=== PATIENT | female | born 1985 | race Caucasian/White ===

== ENCOUNTER 2017-01-09 14:43 | Emergency (ER) | payer BC ==
[~2017-01-09] VITALS: Ht 154.9 cm; Wt 55.2 kg
[~2017-01-09 14:43] MED LIST: CYCL-319 PO
[2017-01-09 14:45] VITALS: Ht 154.9 cm; Wt 55.2 kg
[2017-01-09] MEDS ORDERED: IBUPROFEN 800 MG TAB PO ONE (15:30)
--- NOTE | 2017-01-09 15:58 | RADRPT ---
PROCEDURE: US Pelvis. CLINICAL INDICATION: Pelvic pain. TECHNIQUE: The pelvis was evaluated with transabdominal and transvaginal sonography in the axial a nd sagittal planes. COMPARISON: No prior study is available for comparison. FINDINGS: Uterus: 8.5 x 4.5 x 5.3 cm. Endometrium: Thickened and heterogeneous measuring 12.1 mm. Right ovary: 1.9 x 0.9 x 1.3 cm. Left ovary: 2.0 x 1.3 x 1.9 cm. Uterine masses: None. Ovarian masses: None. Color Doppler and pulsed Doppler sonography demonstrate normal flow to the ova [place]. Other pelvic masses: None. Free fluid: None. IMPRESSION: 1. Thickened and heterogeneous endometrium measuring 12.1 mm. Follow-up ultrasound in 6 weeks is ad vised. 2. Otherwise normal pelvic ultrasound. RPTAT: QQ .Werner Payne MD, Date Time Electronically viewed and signed by .Werner Payne MD, on 01/09/2017 15:58 .R/
--- NOTE | 2017-01-09 16:07 | ERD ---
ER Documentation Chief Complaint Chief Complaint vag bleed x 3 weeks with pelvic pain HPI This a 31-year-old female who presents the emergency department today complaining of vaginal bleeding. Patient states that she had her period for 3 weeks and it stopped for fun week and then returned. States she has had this problem in the past. States she is taking oral contraceptive pills denies any fevers or chills, vomiting or diarrhea. ROS All systems reviewed and are negative except as per history of present illness. Medications Home Meds Active Scripts Acetaminophen* (Tylophen*) 500 Mg Capsule, 1 CAP PO Q6H Y for PAIN AND OR ELEVATED TEMP, #30 CAP Prov:SUNNY LYONS PA-C 01/09/17 Naproxen* (Naprosyn*) 500 Mg Tablet, 500 MG PO BID Y for PAIN AND/OR INFLAMMATION, #30 TAB Prov:SUNNY LYONS PA-C 01/09/17 Cyclobenzaprine Hcl* (Cyclobenzaprine Hcl*) 10 Mg Tablet, 10 MG PO TID, #15 TAB Prov:ARNOLDO FLETCHER NP 12/17/14 Allergies Allergies: Coded Allergies: No Known Allergy (Unverified , 12/17/14) PMhx/Soc History of Surgery: No Anesthesia Reaction: No Hx Neurological Disorder: No Hx Respiratory Disorders: No Hx Cardiac Disorders: No Hx Psychiatric Problems: No Hx Miscellaneous Medical Probl: No Hx Alcohol Use: No Hx Substance Use: No Hx Tobacco Use: No Physical Exam Vitals Vital Signs Date Time Temp Pulse Resp B/P Pulse Ox O2 Delivery O2 Flow Rate FiO2 01/09/17 16:37 102 18 134/77 100 Room Air 01/09/17 14:45 99.0 122 18 152/87 100 Physical Exam Const: NAD Head: Atraumatic Eyes: Normal Conjunctiva ENT: Normal External Ears, Nose and Mouth. Neck: Full range of motion..~ No meningismus. Resp: Clear to auscultation bilaterally Cardio: Regular rate and rhythm, no murmurs Abd: Soft, pelvic tenderness non distended. Normal bowel sounds no tenderness at McBurney's Skin: No petechiae or rashes Back: No midline or flank tenderness Ext: No cyanosis, or edema Neur: Awake and alert Psych: Normal Mood and Affect Result Diagram: 01/09/17 1521 Results 24 hrs Laboratory Tests Test 01/09/17 15:20 01/09/17 15:21 Urine Color RED Urine Clarity SLIGHTLY CLOUDY Urine pH 6.0 Urine Specific [place] 1.021 Urine Ketones NEGATIVEmg/dL Urine Nitrite NEGATIVEmg/dL Urine Bilirubin NEGATIVEmg/dL Urine Urobilinogen NEGATIVEmg/dL Urine Leukocyte Esterase NEGATIVELeu/ul Urine Microscopic RBC > 182/HPF Urine Microscopic WBC 6/HPF Urine Hemoglobin 3+mg/dL Urine Glucose NEGATIVEmg/dL Urine Total Protein 2+mg/dl White Blood Count 9.310^3/ul Red Blood Count 4.7110^6/ul Hemoglobin 13.7g/dl Hematocrit 41.8% Mean Corpuscular Volume 88.7fl Mean Corpuscular Hemoglobin 29.1pg Mean Corpuscular Hemoglobin Concent 32.8g/dl Red Cell Distribution Width 12.8% Platelet Count 35852^3/UL Mean Platelet Volume 9.2fl Neutrophils % 69.5% Lymphocytes % 24.4% Monocytes % 4.4% Eosinophils % 1.1% Basophils % 0.3% Nucleated Red Blood Cells % 0.0/100WBC Neutrophils # 6.410^3/ul Lymphocytes # 2.310^3/ul Monocytes # 0.410^3/ul Eosinophils # 0.110^3/ul Basophils # 0.010^3/ul Nucleated Red Blood Cells # 0.010^3/ul Current Medications Medications (Trade) Dose Ordered Sig/Nikki Route PRN Reason Start Time Stop Time Status Last Admin Dose Admin Ibuprofen (Motrin) 800 mg ONCE ONCE PO 01/09/17 15:30 01/09/17 15:31 DC 01/09/17 15:29 DIAGNOSTIC IMAGING REPORT Patient: CAMILO LINDA : 1985 Age: 31 Sex: F MR #: [id number] DOS: 01/09/17 0000 Ordering MD: SUNNY LYONS PA-C Location: E Room/Bed: PROCEDURE: US Pelvis. CLINICAL INDICATION: Pelvic pain. TECHNIQUE: The pelvis was evaluated with transabdominal and transvaginal sonography in the axial and sagittal planes. COMPARISON: No prior study is available for comparison. FINDINGS: Uterus: 8.5 x 4.5 x 5.3 cm. Endometrium: Thickened and heterogeneous measuring 12.1 mm. Right ovary: 1.9 x 0.9 x 1.3 cm. Left ovary: 2.0 x 1.3 x 1.9 cm. Uterine masses: None. Ovarian masses: None. Color Doppler and pulsed Doppler sonography demonstrate normal flow to the ovaries. Other pelvic masses: None. Free fluid: None. IMPRESSION: 1. Thickened and heterogeneous endometrium measuring 12.1 mm. Follow-up ultrasound in 6 weeks is advised. 2. Otherwise normal pelvic ultrasound. RPTAT: QQ .Werner Payne MD, MD Date Time Electronically viewed and signed by .Werner Payne MD, MD on 01/09/2017 15:58 .R/ CC: SUNNY LYONS PA-C Procedures/MDM This is a 31-year-old female who presents the emergency department today complaining of lower pelvic pain and vaginal bleeding for the past several weeks. Given patient's complaints and physical exam I did obtain laboratory workup as well as imaging. Laboratory workup shows no elevated white blood cell count. She is not anemic. Platelets are within normal limits. test is negative UA is negative for infection. There is greater than 182 microscopic red blood cells. Ultrasound shows a thickened and heterogeneous endometrium measuring 12.1 mm. A follow-up ultrasound in 6 weeks is recommended. There is normal flow to both ovaries. There is no free fluid or pelvic masses. At this time is consistent with dysfunctional uterine bleeding. Low suspicion for ectopic , to ovarian abscess, ovarian torsion. Low suspicion for acute surgical abdomen. Given Motrin here in the emergency department and pain improved. Vital signs improved. She is afebrile and otherwise well-appearing. This time feels she is stable for discharge and outpatient management. I have explained all results to the patient. I have explained her that she does need a repeat ultrasound in 6 weeks and she does need to follow-up with her clinic who gave her the oral contraceptive pills. I have explained to the patient that this may be hormone related and she may need to change the type of pill that she is taking. I have also given her a list of community resources for gynecology specialist. Patient was worried about the blood clots that she passed and have reassured the patient that she does not have anemia. At this time the patient is stable for discharge and outpatient management. Patient should follow up with their PCP in the next 1-2 days. They may return to the emergency department sooner for any persistent or worsening of symptoms. Patient and understood and agreed with the plan. Discussed the patient with Dr. Saenz and he is in agreement with the plan. Departure Diagnosis: Primary Impression: Vaginal bleeding Condition: SUNNY Hurley PA-C Jan 09, 2017 16:07
[2017-01-09 16:37] VITALS: BP 134/77; PULSE 102; RESP 18
[2017-01-09] MEDS ORDERED: NAPR-260 PO (16:41)
[2017-01-09] MEDS ORDERED: ACET500C5 PO (16:42)
== END 2017-01-09 17:30 | disposition home or self-care (01) ==
LOC: FTE 14:43
DX: N93.9 Abnormal uterine and vaginal bleeding, unspecified (principal); R10.2 Pelvic and perineal pain
CPT/HCPCS: 76830; 76856; 81001; 85025